=== PATIENT | male | born 1950 | race Caucasian/White ===

== ENCOUNTER 2022-03-08 15:50 | Emergency (ER) | payer MEDICARE ==
[2022-03-08 16:29] VITALS: BP 126/51; PULSE 89
[2022-03-08 16:30] LABS: ANION GAP 12.8 meq/L (7-15)
== END 2022-03-08 17:03 | disposition home or self-care (01) ==
LOC: LL.ED 15:50 → SUPCPDRO 15:50 → LL.ED 17:03
DX: M79.651 Pain in right thigh (principal); R79.89 Other specified abnormal findings of blood chemistry; Z79.899 Other long term (current) drug therapy; Z88.0 Allergy status to penicillin; E78.00 Pure hypercholesterolemia, unspecified; I10 Essential (primary) hypertension; E66.9 Obesity, unspecified; Z68.41 Body mass index [BMI] 40.0-44.9, adult; Z87.891 Personal history of nicotine dependence; Z79.01 Long term (current) use of anticoagulants; Z79.84 Long term (current) use of oral hypoglycemic drugs
CPT/HCPCS: 36415; 80053; 85025; 85379; 85610; 99283; 99284

== ENCOUNTER 2023-01-03 11:41 | Day surgery (SDC) | payer MEDICARE, OTHER ==
[~2023-01-03 11:41] MED LIST: Lactated Ringers 1,000 ML IV SCH; Midazolam 1 MG/ML 2 ML SDV ONE; Propofol 200 MG/20 ML SDV ONE; Sodium Chloride 0.9% 10 ML Syringe FLUSH PRN
[2023-01-03 13:26] VITALS: BP 120/84; PULSE 65
== END 2023-01-03 13:41 | disposition home or self-care (01) ==
LOC: LL.SDS 11:41
PROVIDERS: ATTEND Surgery
DX: K57.30 Diverticulosis of large intestine without perforation or abscess without bleeding (principal); E11.9 Type 2 diabetes mellitus without complications; E78.5 Hyperlipidemia, unspecified; Z79.01 Long term (current) use of anticoagulants; Z79.84 Long term (current) use of oral hypoglycemic drugs; Z79.899 Other long term (current) drug therapy; Z88.0 Allergy status to penicillin; Z88.1 Allergy status to other antibiotic agents; Z87.891 Personal history of nicotine dependence
CPT/HCPCS: 45378; 82947; J2250; J2704; J7120; 00813

== ENCOUNTER 2024-09-04 10:57 | Emergency (ER) | payer MEDICARE ==
[2024-09-04] MEDS ORDERED: Sodium Chloride 0.9% 10 ML Syringe FLUSH PRN (11:20)
[2024-09-04 12:24] VITALS: BP 144/57; PULSE 41
== END 2024-09-04 12:45 ==
LOC: LL.ED 10:57
DX: R00.1 Bradycardia, unspecified (principal); I10 Essential (primary) hypertension; E78.00 Pure hypercholesterolemia, unspecified; E11.9 Type 2 diabetes mellitus without complications; E66.9 Obesity, unspecified; Z96.659 Presence of unspecified artificial knee joint; Z88.0 Allergy status to penicillin; Z88.1 Allergy status to other antibiotic agents; Z79.01 Long term (current) use of anticoagulants; Z79.84 Long term (current) use of oral hypoglycemic drugs; Z79.899 Other long term (current) drug therapy; Z68.41 Body mass index [BMI] 40.0-44.9, adult
CPT/HCPCS: 93005; 93010; 99284

== ENCOUNTER 2025-01-06 12:06 | Inpatient (IN) | payer MEDICARE, OTHER ==
[2025-01-06 12:45] LABS: BASOPHILS ABSOLUTE AUTO 0.02 K/uL (0.00-0.20); BASOPHILS PERCENT AUTO 0.2 % (0.0-2.0); EOSINOPHILS ABSOLUTE AUTO 0.06 K/uL (0.00-0.50); EOSINOPHILS PERCENT AUTO 0.5 % (0.0-5.0); HEMATOCRIT 43.1 % (39.0-49.0); IMMATURE GRAN ABSOLUTE AUTO 0.03 10^3/uL (0.00-0.04); IMMATURE GRAN PERCENT AUTO 0.3 % (0.0-0.4); LYMPHOCYTES PERCENT AUTO 7.2 % (10.0-50.0); MEAN CORPUSCULAR HEMOGLOBIN 28.5 pg (28.2-33.3); MEAN CORPUSCULAR HGB CONC 32.5 g/dL (31.7-36.0); MEAN CORPUSCULAR VOLUME 87.8 fL (84.0-98.0); MONOCYTES ABSOLUTE AUTO 0.51 K/uL (0.00-1.00); MONOCYTES PERCENT AUTO 4.6 % (2.0-14.0); NEUTROPHILS ABSOLUTE AUTO 9.67 K/uL (1.40-7.00); NEUTROPHILS PERCENT AUTO 87.2 % (45.0-80.0); PLATELET COUNT,PLT 147 K/uL (150-350); RED BLOOD CELL COUNT 4.91 M/uL (4.33-5.41); RED CELL DISTRIBUTION WIDTH 14.7 % (11.2-14.1); WHITE BLOOD CELL COUNT,WBC 11.1 K/uL (4.0-10.2)
[2025-01-06 13:05] LABS: INR 1.6 (0.9-1.1); PROTHROMBIN TIME 15.1 SEC (9.0-11.1); PTT,PARTIAL THROMBOPLSTIN TIME 42.3 SEC (23.8-34.4)
[2025-01-06 13:06] LABS: ALBUMIN 2.6 g/dL (3.4-5.0); BILIRUBIN TOTAL 0.3 mg/dL (0.2-1.0); CALCIUM 9.4 mg/dL (8.5-10.1); CARBON DIOXIDE,CO2 22.1 mmol/L (21.0-32.0); CREATININE 1.5 mg/dL (0.51-1.17); EST CRCL DRUG DOSING (CG) 42.55 mL/min; POTASSIUM,K 4.2 mmol/L (3.5-5.1)
[2025-01-06 13:08] LABS: ANION GAP 14.1 meq/L (7-15)
[2025-01-06 15:19] LABS: LACTIC ACID 2.2 mmol/L (0.4-2.0)
[2025-01-06] MEDS ORDERED: Polyethylene Glycol 3350 Powder 17 GM Packet PO PRN (15:19)
[2025-01-06] MEDS ORDERED: Ondansetron 4 MG Tab.DIS PO PRN (15:19)
[2025-01-06] MEDS: ceFAZolin 2 GM in Premix Bag 1 BAG IV SCH (15:46)
[2025-01-06] MEDS: Sodium Chloride 0.9% 10 ML Syringe FLUSH PRN (15:54)
[2025-01-06] MEDS: Acetaminophen 325 MG Tab PO PRN (16:19)
[2025-01-06] MEDS: Nystatin Topical Powder 15 GM Bottle TOP SCH (19:43)
[2025-01-06] MEDS: Calcium Carbonate 500 MG Tab.Chew PO SCH (19:43)
[2025-01-06] MEDS: Warfarin 5 MG Tab PO SCH (19:43)
[2025-01-06] MEDS: Lisinopril 10 MG Tab PO SCH (19:44)
[2025-01-06] MEDS: atorvaSTATin 20 MG Tab PO SCH (19:45)
[2025-01-06] MEDS: Warfarin 2.5 MG Tab ONE (20:14)
[2025-01-06] MEDS: Warfarin 2.5 MG Tab PO ONE (20:16)
[2025-01-06] MEDS: oxyCODONE 5 MG Tab PO PRN (22:43)
[2025-01-07] MEDS: Melatonin 3 MG Tab PO PRN (02:45)
[2025-01-07] MEDS: Gabapentin 300 MG Cap PO ONE (06:21)
[2025-01-07] MEDS: Sertraline 50 MG Tab PO SCH (07:36)
[2025-01-07 07:39] LABS: BASOPHILS ABSOLUTE AUTO 0.02 K/uL (0.00-0.20); BASOPHILS PERCENT AUTO 0.2 % (0.0-2.0); EOSINOPHILS ABSOLUTE AUTO 0.22 K/uL (0.00-0.50); EOSINOPHILS PERCENT AUTO 2.2 % (0.0-5.0); HEMATOCRIT 39.1 % (39.0-49.0); HEMOGLOBIN 12.7 g/dL (13.1-16.8); IMMATURE GRAN ABSOLUTE AUTO 0.04 10^3/uL (0.00-0.04); IMMATURE GRAN PERCENT AUTO 0.4 % (0.0-0.4); LYMPHOCYTES PERCENT AUTO 14.9 % (10.0-50.0); MEAN CORPUSCULAR HEMOGLOBIN 28.6 pg (28.2-33.3); MEAN CORPUSCULAR HGB CONC 32.5 g/dL (31.7-36.0); MEAN CORPUSCULAR VOLUME 88.1 fL (84.0-98.0); MONOCYTES ABSOLUTE AUTO 0.88 K/uL (0.00-1.00); MONOCYTES PERCENT AUTO 8.7 % (2.0-14.0); NEUTROPHILS ABSOLUTE AUTO 7.43 K/uL (1.40-7.00); NEUTROPHILS PERCENT AUTO 73.6 % (45.0-80.0); PLATELET COUNT,PLT 154 K/uL (150-350); RED BLOOD CELL COUNT 4.44 M/uL (4.33-5.41); RED CELL DISTRIBUTION WIDTH 14.9 % (11.2-14.1); WHITE BLOOD CELL COUNT,WBC 10.1 K/uL (4.0-10.2)
[2025-01-07 07:41] LABS: ALBUMIN 2.3 g/dL (3.4-5.0); BILIRUBIN TOTAL 0.4 mg/dL (0.2-1.0); CALCIUM 9.1 mg/dL (8.5-10.1); CARBON DIOXIDE,CO2 24.7 mmol/L (21.0-32.0); CREATININE 1.19 mg/dL (0.51-1.17); EST CRCL DRUG DOSING (CG) 55.38 mL/min; MAGNESIUM 1.7 mg/dL (1.8-2.4); POTASSIUM,K 4.2 mmol/L (3.5-5.1); PROTEIN TOTAL,TP 6.5 g/dL (6.4-8.2)
[2025-01-07 07:44] LABS: INR 1.7 (0.9-1.1); PROTHROMBIN TIME 16.7 SEC (9.0-11.1)
[2025-01-07 07:49] LABS: ANION GAP 9.5 meq/L (7-15)
[2025-01-07 08:00] LABS: BILIRUBIN,URINE NEGATIVE (NEGATIVE); COLOR,URINE YELLOW; GLUCOSE,URINE 100 mg/dL (NEGATIVE); KETONES,URINE NEGATIVE (NEGATIVE); LEUKOCYTE ESTERASE,URINE NEGATIVE (NEGATIVE); NITRITE,URINE NEGATIVE (NEGATIVE); OCCULT BLOOD,URINE LARGE (NEGATIVE); PH,URINE 5.5 (5.0-9.0); PROTEIN,URINE 30 mg/dL (NEGATIVE); UROBILINOGEN,URINE 0.2 E.U./dL (0.2-1.0)
[2025-01-07 08:21] LABS: PTT,PARTIAL THROMBOPLSTIN TIME 43.6 SEC (23.8-34.4)
[2025-01-07 08:30] LABS: APPEARANCE,URINE SLIGHTLY CLOUDY
[2025-01-07 08:40] LABS: AMORPHOUS SEDIMENT,URINE FEW /HPF (0/HPF); BACTERIA,URINE OCCASIONAL /HPF (NONE TO FEW); EPITHELIAL CELLS,URINE OCCASIONAL /LPF; MUCUS,URINE FEW /LPF (NEGATIVE)
[2025-01-07] MEDS: Insulin Lispro 100 UNIT/ML 10 ML Vial SUBCUT SCH (10:26)
[2025-01-07] MEDS: metFORMIN 500 MG Tab PO SCH (11:37)
[2025-01-07] MEDS: Gabapentin 100 MG Cap PO SCH (11:37)
[2025-01-08] MEDS: Tamsulosin 0.4 MG Cap.ER PO SCH (02:56)
[2025-01-08 07:32] LABS: BASOPHILS ABSOLUTE AUTO 0.03 K/uL (0.00-0.20); BASOPHILS PERCENT AUTO 0.3 % (0.0-2.0); EOSINOPHILS ABSOLUTE AUTO 0.26 K/uL (0.00-0.50); HEMATOCRIT 38.5 % (39.0-49.0); HEMOGLOBIN 12.5 g/dL (13.1-16.8); IMMATURE GRAN ABSOLUTE AUTO 0.02 10^3/uL (0.00-0.04); IMMATURE GRAN PERCENT AUTO 0.2 % (0.0-0.4); LYMPHOCYTES ABSOLUTE AUTO 1.59 K/uL (0.50-3.50); LYMPHOCYTES PERCENT AUTO 18.2 % (10.0-50.0); MEAN CORPUSCULAR HEMOGLOBIN 28.5 pg (28.2-33.3); MEAN CORPUSCULAR HGB CONC 32.5 g/dL (31.7-36.0); MEAN CORPUSCULAR VOLUME 87.9 fL (84.0-98.0); MONOCYTES ABSOLUTE AUTO 0.72 K/uL (0.00-1.00); MONOCYTES PERCENT AUTO 8.2 % (2.0-14.0); NEUTROPHILS ABSOLUTE AUTO 6.14 K/uL (1.40-7.00); NEUTROPHILS PERCENT AUTO 70.1 % (45.0-80.0); PLATELET COUNT,PLT 158 K/uL (150-350); RED BLOOD CELL COUNT 4.38 M/uL (4.33-5.41); RED CELL DISTRIBUTION WIDTH 14.7 % (11.2-14.1); WHITE BLOOD CELL COUNT,WBC 8.8 K/uL (4.0-10.2)
[2025-01-08 08:06] LABS: INR 2.2 (0.9-1.1); PROTHROMBIN TIME 20.9 SEC (9.0-11.1); PTT,PARTIAL THROMBOPLSTIN TIME 45.7 SEC (23.8-34.4)
[2025-01-08 08:56] LABS: ALBUMIN 2.3 g/dL (3.4-5.0); C-REACTIVE PROTEIN 10.21 mg/dL (0.05-0.30); CALCIUM 9.2 mg/dL (8.5-10.1); CARBON DIOXIDE,CO2 24.6 mmol/L (21.0-32.0); CREATININE 1.04 mg/dL (0.51-1.17); EST CRCL DRUG DOSING (CG) 63.37 mL/min; MAGNESIUM 1.7 mg/dL (1.8-2.4); POTASSIUM,K 4.4 mmol/L (3.5-5.1); PROTEIN TOTAL,TP 6.5 g/dL (6.4-8.2)
[2025-01-08 09:05] LABS: ANION GAP 9.8 meq/L (7-15)
[2025-01-08 09:23] LABS: BILIRUBIN TOTAL 0.2 mg/dL (0.2-1.0)
[2025-01-08] MEDS: Iopamidol 755 Mg/ML 100 ML Bottle ONE (10:12)
[2025-01-08] MEDS: Enoxaparin 100 MG/1 ML Syringe SUBCUT SCH (10:49)
[2025-01-08] MEDS: Lactated Ringers 1,000 ML IV ONE (10:54)
[2025-01-08] MEDS: Warfarin 2.5 MG Tab PO SCH (19:37)
[2025-01-09 07:48] LABS: INR 2.4 (0.9-1.1); PROTHROMBIN TIME 22.4 SEC (9.0-11.1); PTT,PARTIAL THROMBOPLSTIN TIME 46.5 SEC (23.8-34.4)
[2025-01-09 07:51] LABS: BASOPHILS ABSOLUTE AUTO 0.02 K/uL (0.00-0.20); BASOPHILS PERCENT AUTO 0.2 % (0.0-2.0); EOSINOPHILS ABSOLUTE AUTO 0.27 K/uL (0.00-0.50); EOSINOPHILS PERCENT AUTO 3.3 % (0.0-5.0); HEMATOCRIT 38.9 % (39.0-49.0); HEMOGLOBIN 12.8 g/dL (13.1-16.8); IMMATURE GRAN ABSOLUTE AUTO 0.05 10^3/uL (0.00-0.04); IMMATURE GRAN PERCENT AUTO 0.6 % (0.0-0.4); LYMPHOCYTES ABSOLUTE AUTO 1.87 K/uL (0.50-3.50); LYMPHOCYTES PERCENT AUTO 22.7 % (10.0-50.0); MEAN CORPUSCULAR HEMOGLOBIN 28.8 pg (28.2-33.3); MEAN CORPUSCULAR HGB CONC 32.9 g/dL (31.7-36.0); MEAN CORPUSCULAR VOLUME 87.6 fL (84.0-98.0); MONOCYTES ABSOLUTE AUTO 0.57 K/uL (0.00-1.00); MONOCYTES PERCENT AUTO 6.9 % (2.0-14.0); NEUTROPHILS ABSOLUTE AUTO 5.45 K/uL (1.40-7.00); NEUTROPHILS PERCENT AUTO 66.3 % (45.0-80.0); PLATELET COUNT,PLT 190 K/uL (150-350); RED BLOOD CELL COUNT 4.44 M/uL (4.33-5.41); RED CELL DISTRIBUTION WIDTH 14.4 % (11.2-14.1); WHITE BLOOD CELL COUNT,WBC 8.2 K/uL (4.0-10.2)
[2025-01-09 08:17] LABS: ALBUMIN 2.4 g/dL (3.4-5.0); BILIRUBIN TOTAL 0.2 mg/dL (0.2-1.0); CALCIUM 9.2 mg/dL (8.5-10.1); CARBON DIOXIDE,CO2 26.4 mmol/L (21.0-32.0); CREATININE 0.88 mg/dL (0.51-1.17); EST CRCL DRUG DOSING (CG) 74.89 mL/min; MAGNESIUM 1.7 mg/dL (1.8-2.4); POTASSIUM,K 4.5 mmol/L (3.5-5.1); PROTEIN TOTAL,TP 6.6 g/dL (6.4-8.2)
[2025-01-09 08:18] LABS: ANION GAP 8.1 meq/L (7-15)
[2025-01-09] MEDS ORDERED: Glucagon,Human Recombinant 1 MG Vial IM PRN (16:28)
[2025-01-09] MEDS ORDERED: 50% Dextrose in Water 50 ML Syringe IVPUSH PRN (16:28)
[2025-01-09] MEDS: Insulin Lispro 100 Units/ML 3 ML Vial SUBCUT SCH (17:37)
[2025-01-10 07:46] LABS: BASOPHILS ABSOLUTE AUTO 0.02 K/uL (0.00-0.20); BASOPHILS PERCENT AUTO 0.2 % (0.0-2.0); EOSINOPHILS ABSOLUTE AUTO 0.23 K/uL (0.00-0.50); EOSINOPHILS PERCENT AUTO 2.8 % (0.0-5.0); HEMATOCRIT 41.1 % (39.0-49.0); HEMOGLOBIN 13.2 g/dL (13.1-16.8); IMMATURE GRAN ABSOLUTE AUTO 0.13 10^3/uL (0.00-0.04); IMMATURE GRAN PERCENT AUTO 1.6 % (0.0-0.4); LYMPHOCYTES ABSOLUTE AUTO 1.65 K/uL (0.50-3.50); LYMPHOCYTES PERCENT AUTO 20.4 % (10.0-50.0); MEAN CORPUSCULAR HEMOGLOBIN 28.1 pg (28.2-33.3); MEAN CORPUSCULAR HGB CONC 32.1 g/dL (31.7-36.0); MEAN CORPUSCULAR VOLUME 87.6 fL (84.0-98.0); MONOCYTES ABSOLUTE AUTO 0.71 K/uL (0.00-1.00); MONOCYTES PERCENT AUTO 8.8 % (2.0-14.0); NEUTROPHILS ABSOLUTE AUTO 5.36 K/uL (1.40-7.00); NEUTROPHILS PERCENT AUTO 66.2 % (45.0-80.0); PLATELET COUNT,PLT 209 K/uL (150-350); RED BLOOD CELL COUNT 4.69 M/uL (4.33-5.41); RED CELL DISTRIBUTION WIDTH 14.3 % (11.2-14.1); WHITE BLOOD CELL COUNT,WBC 8.1 K/uL (4.0-10.2)
[2025-01-10 08:03] LABS: ALBUMIN 2.5 g/dL (3.4-5.0); ANION GAP 1.3 meq/L (7-15); BILIRUBIN TOTAL 0.3 mg/dL (0.2-1.0); CALCIUM 9.3 mg/dL (8.5-10.1); CARBON DIOXIDE,CO2 29.7 mmol/L (21.0-32.0); CREATININE 0.91 mg/dL (0.51-1.17); EST CRCL DRUG DOSING (CG) 72.42 mL/min; MAGNESIUM 1.7 mg/dL (1.8-2.4); POTASSIUM,K 4.8 mmol/L (3.5-5.1); PROTEIN TOTAL,TP 6.9 g/dL (6.4-8.2)
[2025-01-10 08:18] LABS: INR 1.9 (0.9-1.1); PROTHROMBIN TIME 18.1 SEC (9.0-11.1); PTT,PARTIAL THROMBOPLSTIN TIME 41.4 SEC (23.8-34.4)
[2025-01-10 09:49] LABS: INR 2.1
[2025-01-10] MEDS: Take Home: Tamsulosin HCl 0.4 MG, 6 Cap Pack PO ONE (12:10)
[2025-01-10 12:40] VITALS: BP 143/69; PULSE 73
== END 2025-01-10 12:16 | disposition home or self-care (01) | DRG 300 ==
LOC: SUPCPDRO 12:06 → LL.ED 12:06 → LL.MS 14:15
PROVIDERS: ADMIT Physician Assistant; ATTEND Nurse Practitioner Family
DX: I82.411 Acute embolism and thrombosis of right femoral vein (principal); D68.59 Other primary thrombophilia; I10 Essential (primary) hypertension; E78.00 Pure hypercholesterolemia, unspecified; Z68.38 Body mass index [BMI] 38.0-38.9, adult; E11.9 Type 2 diabetes mellitus without complications; E66.9 Obesity, unspecified; Z79.84 Long term (current) use of oral hypoglycemic drugs; H54.7 Unspecified visual loss; Z88.0 Allergy status to penicillin; K21.9 Gastro-esophageal reflux disease without esophagitis; M19.90 Unspecified osteoarthritis, unspecified site; F41.9 Anxiety disorder, unspecified; I35.0 Nonrheumatic aortic (valve) stenosis; Z79.899 Other long term (current) drug therapy; Z98.890 Other specified postprocedural states; Z96.659 Presence of unspecified artificial knee joint; Z95.0 Presence of cardiac pacemaker; Z79.01 Long term (current) use of anticoagulants; Z88.1 Allergy status to other antibiotic agents
CPT/HCPCS: 36415; 71275; 80053; 81001; 82947; 83605; 83735; 85025; 85379; 85610; 85730; 86140; 93971; 97161-GP; 99223; 99232; 99233; 99239; 99284; A9270-GY; J0690; J1650; J1815-GY; J7120; Q9967

== ENCOUNTER 2025-04-28 20:49 | Inpatient (IN) | payer MEDICARE ==
[2025-04-28 21:15] LABS: BASOPHILS ABSOLUTE AUTO 0.02 K/uL (0.00-0.20); BASOPHILS PERCENT AUTO 0.1 % (0.0-2.0); EOSINOPHILS ABSOLUTE AUTO 0.00 K/uL (0.00-0.50); EOSINOPHILS PERCENT AUTO 0.0 % (0.0-5.0); IMMATURE GRAN ABSOLUTE AUTO 0.04 10^3/uL (0.00-0.04); IMMATURE GRAN PERCENT AUTO 0.3 % (0.0-0.4); LYMPHOCYTES ABSOLUTE AUTO 0.62 K/uL (0.50-3.50); LYMPHOCYTES PERCENT AUTO 4.0 % (10.0-50.0); MONOCYTES ABSOLUTE AUTO 0.45 K/uL (0.00-1.00); MONOCYTES PERCENT AUTO 2.9 % (2.0-14.0); NEUTROPHILS ABSOLUTE AUTO 14.46 K/uL (1.40-7.00); NEUTROPHILS PERCENT AUTO 92.7 % (45.0-80.0); PLATELET COUNT,PLT 179 K/uL (150-350); RED BLOOD CELL COUNT 4.66 M/uL (4.33-5.41); RED CELL DISTRIBUTION WIDTH 14.6 % (11.2-14.1); WHITE BLOOD CELL COUNT,WBC 15.6 K/uL (4.0-10.2)
[2025-04-28 21:45] LABS: LACTIC ACID 2.5 mmol/L (0.4-2.0)
[2025-04-28 21:47] LABS: ALANINE AMINOTRANSFERASE,ALT 22.0 U/L (12-78); ASPARTATE AMNIOTRANSFERASE,AST 14.0 U/L (15-37); BILIRUBIN TOTAL 0.4 mg/dL (0.2-1.0); BLOOD UREA NITROGEN,BUN 25.0 mg/dL (7-18); CARBON DIOXIDE,CO2 21.1 mmol/L (21.0-32.0); CHLORIDE,CL 100.0 mmol/L (98-107); CREATININE 1.56 mg/dL (0.51-1.17); EST CRCL DRUG DOSING (CG) 39.58 mL/min; GLUCOSE RANDOM 254.0 mg/dL (70-99); POTASSIUM,K 4.2 mmol/L (3.5-5.1); PRO B-TYPE NATRIUR PEPT,BNPPRO 2471.0 pg/mL (0-125); PROTEIN TOTAL,TP 7.2 g/dL (6.4-8.2); SODIUM,NA 133.0 mmol/L (136-145)
[2025-04-28] MEDS: Sodium Chloride 0.9% 10 ML Syringe FLUSH PRN (21:49)
[2025-04-28 22:06] LABS: ESTIMATED GFR 46.0 mL/min (>=60)
[2025-04-28] MEDS ORDERED: Ondansetron 4 MG/2 ML SDV IVPUSH PRN (23:23)
[2025-04-29] MEDS: Magnesium Sulfate 2 GM/50 mL 2 GM in Premix Bag 1 BAG IV ONE (02:48)
[2025-04-29 09:06] LABS: BASOPHILS ABSOLUTE AUTO 0.02 K/uL (0.00-0.20); BASOPHILS PERCENT AUTO 0.2 % (0.0-2.0); EOSINOPHILS ABSOLUTE AUTO 0.01 K/uL (0.00-0.50); EOSINOPHILS PERCENT AUTO 0.1 % (0.0-5.0); IMMATURE GRAN ABSOLUTE AUTO 0.02 10^3/uL (0.00-0.04); IMMATURE GRAN PERCENT AUTO 0.2 % (0.0-0.4); LYMPHOCYTES ABSOLUTE AUTO 0.67 K/uL (0.50-3.50); LYMPHOCYTES PERCENT AUTO 5.6 % (10.0-50.0); MONOCYTES ABSOLUTE AUTO 0.49 K/uL (0.00-1.00); MONOCYTES PERCENT AUTO 4.1 % (2.0-14.0); NEUTROPHILS ABSOLUTE AUTO 10.73 K/uL (1.40-7.00); NEUTROPHILS PERCENT AUTO 89.8 % (45.0-80.0); PLATELET COUNT,PLT 139 K/uL (150-350); RED BLOOD CELL COUNT 4.32 M/uL (4.33-5.41); RED CELL DISTRIBUTION WIDTH 14.7 % (11.2-14.1); WHITE BLOOD CELL COUNT,WBC 11.9 K/uL (4.0-10.2)
[2025-04-29 09:26] LABS: BLOOD UREA NITROGEN,BUN 27.0 mg/dL (7-18); CARBON DIOXIDE,CO2 23.4 mmol/L (21.0-32.0); CHLORIDE,CL 103.0 mmol/L (98-107); CREATININE 1.27 mg/dL (0.51-1.17); EST CRCL DRUG DOSING (CG) 48.62 mL/min; ESTIMATED GFR 59.0 mL/min (>=60); GLUCOSE RANDOM 234.0 mg/dL (70-99); POTASSIUM,K 4.2 mmol/L (3.5-5.1); SODIUM,NA 134.0 mmol/L (136-145)
[2025-04-29] MEDS: Cholecalciferol (Vitamin D3) 5,000 UNIT Tab PO SCH (20:42)
[2025-04-30 07:31] LABS: BASOPHILS ABSOLUTE AUTO 0.01 K/uL (0.00-0.20); BASOPHILS PERCENT AUTO 0.1 % (0.0-2.0); EOSINOPHILS ABSOLUTE AUTO 0.14 K/uL (0.00-0.50); EOSINOPHILS PERCENT AUTO 1.4 % (0.0-5.0); IMMATURE GRAN ABSOLUTE AUTO 0.03 10^3/uL (0.00-0.04); IMMATURE GRAN PERCENT AUTO 0.3 % (0.0-0.4); LYMPHOCYTES ABSOLUTE AUTO 0.91 K/uL (0.50-3.50); LYMPHOCYTES PERCENT AUTO 9.1 % (10.0-50.0); MONOCYTES ABSOLUTE AUTO 0.74 K/uL (0.00-1.00); MONOCYTES PERCENT AUTO 7.4 % (2.0-14.0); NEUTROPHILS ABSOLUTE AUTO 8.16 K/uL (1.40-7.00); NEUTROPHILS PERCENT AUTO 81.7 % (45.0-80.0); PLATELET COUNT,PLT 145 K/uL (150-350); RED BLOOD CELL COUNT 4.27 M/uL (4.33-5.41); RED CELL DISTRIBUTION WIDTH 14.8 % (11.2-14.1); WHITE BLOOD CELL COUNT,WBC 10.0 K/uL (4.0-10.2)
[2025-04-30 07:58] LABS: BLOOD UREA NITROGEN,BUN 20.0 mg/dL (7-18); CARBON DIOXIDE,CO2 21.4 mmol/L (21.0-32.0); CHLORIDE,CL 106.0 mmol/L (98-107); CREATININE 1.03 mg/dL (0.51-1.17); EST CRCL DRUG DOSING (CG) 59.95 mL/min; GLUCOSE RANDOM 158.0 mg/dL (70-99); POTASSIUM,K 4.3 mmol/L (3.5-5.1); SODIUM,NA 136.0 mmol/L (136-145)
[2025-04-30 08:07] LABS: ESTIMATED GFR 76.0 mL/min (>=60)
[2025-05-01 07:43] LABS: BASOPHILS ABSOLUTE AUTO 0.02 K/uL (0.00-0.20); BASOPHILS PERCENT AUTO 0.3 % (0.0-2.0); EOSINOPHILS ABSOLUTE AUTO 0.17 K/uL (0.00-0.50); EOSINOPHILS PERCENT AUTO 2.4 % (0.0-5.0); IMMATURE GRAN ABSOLUTE AUTO 0.02 10^3/uL (0.00-0.04); IMMATURE GRAN PERCENT AUTO 0.3 % (0.0-0.4); LYMPHOCYTES ABSOLUTE AUTO 1.23 K/uL (0.50-3.50); LYMPHOCYTES PERCENT AUTO 17.7 % (10.0-50.0); MONOCYTES ABSOLUTE AUTO 0.72 K/uL (0.00-1.00); MONOCYTES PERCENT AUTO 10.4 % (2.0-14.0); NEUTROPHILS ABSOLUTE AUTO 4.78 K/uL (1.40-7.00); NEUTROPHILS PERCENT AUTO 68.9 % (45.0-80.0); PLATELET COUNT,PLT 160 K/uL (150-350); RED BLOOD CELL COUNT 3.95 M/uL (4.33-5.41); RED CELL DISTRIBUTION WIDTH 14.7 % (11.2-14.1); WHITE BLOOD CELL COUNT,WBC 6.9 K/uL (4.0-10.2)
[2025-05-01 08:01] LABS: BLOOD UREA NITROGEN,BUN 19.0 mg/dL (7-18); CARBON DIOXIDE,CO2 23.5 mmol/L (21.0-32.0); CHLORIDE,CL 103.0 mmol/L (98-107); CREATININE 0.93 mg/dL (0.51-1.17); EST CRCL DRUG DOSING (CG) 66.4 mL/min; GLUCOSE RANDOM 145.0 mg/dL (70-99); POTASSIUM,K 4.2 mmol/L (3.5-5.1); SODIUM,NA 135.0 mmol/L (136-145)
[2025-05-01 08:06] LABS: ESTIMATED GFR 86.0 mL/min (>=60)
[2025-05-01] MEDS: Clindamycin Phosphate in D5W 900 MG in Premix Bag 1 BAG IV SCH (13:48)
[2025-05-02 09:03] LABS: BASOPHILS ABSOLUTE AUTO 0.02 K/uL (0.00-0.20); BASOPHILS PERCENT AUTO 0.3 % (0.0-2.0); EOSINOPHILS ABSOLUTE AUTO 0.20 K/uL (0.00-0.50); EOSINOPHILS PERCENT AUTO 2.7 % (0.0-5.0); IMMATURE GRAN ABSOLUTE AUTO 0.02 10^3/uL (0.00-0.04); IMMATURE GRAN PERCENT AUTO 0.3 % (0.0-0.4); LYMPHOCYTES ABSOLUTE AUTO 0.93 K/uL (0.50-3.50); LYMPHOCYTES PERCENT AUTO 12.6 % (10.0-50.0); MONOCYTES ABSOLUTE AUTO 0.59 K/uL (0.00-1.00); MONOCYTES PERCENT AUTO 8.0 % (2.0-14.0); NEUTROPHILS ABSOLUTE AUTO 5.60 K/uL (1.40-7.00); NEUTROPHILS PERCENT AUTO 76.1 % (45.0-80.0); PLATELET COUNT,PLT 176 K/uL (150-350); RED BLOOD CELL COUNT 4.15 M/uL (4.33-5.41); RED CELL DISTRIBUTION WIDTH 14.4 % (11.2-14.1); WHITE BLOOD CELL COUNT,WBC 7.4 K/uL (4.0-10.2)
[2025-05-02 09:12] LABS: BLOOD UREA NITROGEN,BUN 21.0 mg/dL (7-18); CARBON DIOXIDE,CO2 24.7 mmol/L (21.0-32.0); CHLORIDE,CL 102.0 mmol/L (98-107); CREATININE 1.03 mg/dL (0.51-1.17); EST CRCL DRUG DOSING (CG) 59.95 mL/min; ESTIMATED GFR 76.0 mL/min (>=60); GLUCOSE RANDOM 199.0 mg/dL (70-99); POTASSIUM,K 4.3 mmol/L (3.5-5.1); SODIUM,NA 135.0 mmol/L (136-145)
[2025-05-03 07:45] LABS: BASOPHILS ABSOLUTE AUTO 0.04 K/uL (0.00-0.20); BASOPHILS PERCENT AUTO 0.5 % (0.0-2.0); EOSINOPHILS ABSOLUTE AUTO 0.28 K/uL (0.00-0.50); EOSINOPHILS PERCENT AUTO 3.3 % (0.0-5.0); IMMATURE GRAN ABSOLUTE AUTO 0.05 10^3/uL (0.00-0.04); IMMATURE GRAN PERCENT AUTO 0.6 % (0.0-0.4); LYMPHOCYTES ABSOLUTE AUTO 1.30 K/uL (0.50-3.50); LYMPHOCYTES PERCENT AUTO 15.3 % (10.0-50.0); MONOCYTES ABSOLUTE AUTO 0.72 K/uL (0.00-1.00); MONOCYTES PERCENT AUTO 8.5 % (2.0-14.0); NEUTROPHILS ABSOLUTE AUTO 6.12 K/uL (1.40-7.00); NEUTROPHILS PERCENT AUTO 71.8 % (45.0-80.0); PLATELET COUNT,PLT 197 K/uL (150-350); RED BLOOD CELL COUNT 4.17 M/uL (4.33-5.41); RED CELL DISTRIBUTION WIDTH 14.4 % (11.2-14.1); WHITE BLOOD CELL COUNT,WBC 8.5 K/uL (4.0-10.2)
[2025-05-03 08:00] LABS: BLOOD UREA NITROGEN,BUN 18.0 mg/dL (7-18); CARBON DIOXIDE,CO2 25.6 mmol/L (21.0-32.0); CHLORIDE,CL 103.0 mmol/L (98-107); CREATININE 1.06 mg/dL (0.51-1.17); EST CRCL DRUG DOSING (CG) 58.25 mL/min; GLUCOSE RANDOM 145.0 mg/dL (70-99); POTASSIUM,K 4.5 mmol/L (3.5-5.1); SODIUM,NA 136.0 mmol/L (136-145)
[2025-05-03 08:13] LABS: ESTIMATED GFR 73.0 mL/min (>=60)
[2025-05-03] MEDS ORDERED: Loperamide 2 MG Tab PO PRN (15:22)
[2025-05-03] MEDS: Lactobacillus Rhamnosus GG (Probiotic) Cap PO SCH (16:40)
[2025-05-04 09:10] LABS: MONOCYTES PERCENT MAN 5; WHITE BLOOD CELL COUNT,WBC 7.9 K/uL (4.0-10.2)
[2025-05-04 09:34] LABS: EOSINOPHILS PERCENT MAN 3; LYMPHOCYTES PERCENT MAN 19; SEG NEUTROPHILS PERCENT MAN 73
[2025-05-04] MEDS: Bacitracin Oint 1 GM U/D Packet TOP ONE (11:25)
[2025-05-04 13:33] VITALS: BP 129/73; PULSE 66
== END 2025-05-04 12:38 | disposition home or self-care (01) | DRG 872 ==
LOC: SUPCPDRO 20:49 → LL.ED 20:49 → LL.MS 23:10
PROVIDERS: ADMIT Emergency Medicine; ATTEND Emergency Medicine
DX: A41.9 Sepsis, unspecified organism (principal); L03.116 Cellulitis of left lower limb; Z66 Do not resuscitate; H54.7 Unspecified visual loss; I11.0 Hypertensive heart disease with heart failure; I50.9 Heart failure, unspecified; E78.00 Pure hypercholesterolemia, unspecified; K21.9 Gastro-esophageal reflux disease without esophagitis; M19.90 Unspecified osteoarthritis, unspecified site; N40.0 Benign prostatic hyperplasia without lower urinary tract symptoms; F39 Unspecified mood [affective] disorder; E83.42 Hypomagnesemia; F41.9 Anxiety disorder, unspecified; E11.9 Type 2 diabetes mellitus without complications; E66.9 Obesity, unspecified; Z68.39 Body mass index [BMI] 39.0-39.9, adult; Z98.890 Other specified postprocedural states; Z79.84 Long term (current) use of oral hypoglycemic drugs; Z79.01 Long term (current) use of anticoagulants; Z79.899 Other long term (current) drug therapy; Z86.718 Personal history of other venous thrombosis and embolism; Z88.0 Allergy status to penicillin; Z96.659 Presence of unspecified artificial knee joint
CPT/HCPCS: 36415; 80053; 83605; 83735; 83880; 85025; 87040 ×2; 96374; 99284; A9270; J0696; J7030; 73620-LT; 80048; 80202; 85007; 85048; 87070; 87205; 97165-GO; 97530-GO; J0736; J3373; J3475; J7040; J7050